=== PATIENT | male | born 1950 | race Caucasian/White ===

== ENCOUNTER 2018-06-20 11:48 | Emergency (ER) | payer MEDICARE ==
[2018-06-20 12:20] VITALS: BP 113/79; PULSE 52; RESP 18; TEMP 97.8
--- NOTE | 2018-06-20 12:48 | ED ---
Recheck HPI - General Chief Complaint: Recheck/Abnormal Lab/Rx Stated Complaint: needs blood work Time Seen by Provider: 06/20/18 12:35 Source: patient, RN notes reviewed, old records reviewed Mode of arrival: ambulatory Limitations: no limitations - History of Present Illness Initial Comments: Patient is a 67-year-old male presents today with chief complaint of recheck for his potassium level. He had lab work drawn yesterday showed a mildly elevated potassium level of 5.5. He is not on any diuretics. He denies any chest pain or heart palpitations. Patient reports that he is not on any diuretic medications to cause this. He's never had an issue with his potassium in the past. Patient at this time states that he does have history of thoracic aortic aneurysm, which has been stable. He has had a mitral valve replacement in 2001. This is been stable for many years and they're continuing to monitor it. Patient has had no other complaints. - Related Data Home Medications Medication Instructions Recorded Confirmed Albuterol Inhaler [Ventolin 1 - 2 puff INHALATION Q6HR PRN 12/06/14 08/13/16 Inhaler] Aspirin 81 mg PO HS 12/06/14 08/13/16 Atorvastatin [Lipitor] 20 mg PO HS 12/06/14 08/13/16 Enalapril [Vasotec] 10 mg PO HS 12/06/14 08/13/16 Multivitamin [Men's Multi-Vitamin] 1 each PO DAILY 12/06/14 08/13/16 Omeprazole [PriLOSEC] 20 mg PO DAILY 12/06/14 08/13/16 Tiotropium 18 Mcg/Puff [Spiriva] 1 cap INHALATION DAILY 12/06/14 08/13/16 Cetirizine HCl [Zyrtec] 10 mg PO DAILY 08/07/16 08/13/16 Marine D3 (Mcbrides 3, D3) 2 tab PO DAILY 08/07/16 08/13/16 Metamucil Capsules 5 cap PO DAILY 08/07/16 08/13/16 Metoprolol Tartrate [Lopressor] 25 mg PO DAILY 08/07/16 08/13/16 Sildenafil Citrate [Viagra] 50 mg PO ONCE PRN 08/07/16 08/13/16 Allergies Allergy/AdvReac Type Severity Reaction Status Date / Time naproxen [From Naprosyn] Allergy Anaphylaxis Verified 06/20/18 12:16 codeine AdvReac HEADACHE Verified 06/20/18 12:16 Review of Systems ROS Statement: Those systems with pertinent positive or pertinent negative responses have been documented in the HPI. ROS Other: All systems not noted in ROS Statement are negative. Past Medical History Past Medical History: Heart Failure, COPD, CVA/TIA, GERD/Reflux, GI Bleed, Hyperlipidemia, Hypertension, Prostate Disorder Additional Past Medical History / Comment(s): BPH. POSS SLEEP APNEA, NO TESTING. OCC RECTAL BLEEDING IN PAST. 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 HX CHF R/T MITRAL VALVE REPAIRED. aortic arch aneurysm History of Any Multi-Drug Resistant Organisms: None Reported Past Surgical History: Heart Catheterization, Hernia Repair, Orthopedic Surgery Additional Past Surgical History / Comment(s): REPAIR MITRAL VALVE 11/2001. LT HAND REPAIR. COLONOSCOPIES. Past Anesthesia/Blood Transfusion Reactions: No Reported Reaction Past Psychological History: No Psychological Hx Reported Smoking Status: Former smoker Past Alcohol Use History: Occasional Past Drug Use History: Marijuana - Past Family History Daughter(s) Family Medical History: Cancer Additional Family Medical History / Comment(s): HODGKIN'S LYMPHOMA. General Exam - General Exam Comments Initial Comments: Well-appearing 59-year-old male. Alert and oriented. Patient is an No acute distress. Limitations: no limitations General appearance: alert, in no apparent distress Head exam: Present: atraumatic, normocephalic, normal inspection Eye exam: Present: normal appearance, PERRL, EOMI. Absent: scleral icterus, conjunctival injection, periorbital swelling ENT exam: Present: normal exam, mucous membranes moist Neck exam: Present: normal inspection. Absent: tenderness, meningismus, lymphadenopathy Respiratory exam: Present: normal lung sounds bilaterally. Absent: respiratory distress, wheezes, rales, rhonchi, stridor Cardiovascular Exam: Present: regular rate, normal rhythm, normal heart sounds. Absent: systolic murmur, diastolic murmur, rubs, gallop, clicks Skin exam: Present: warm, dry, intact, normal color. Absent: rash Course Vital Signs 06/20/18 12:16 Temperature 97.8 F Pulse Rate 52 L Respiratory 18 Rate Blood Pressure 113/79 O2 Sat by Pulse 98 Oximetry Medical Decision Making - Medical Decision Making Patient 59-year-old male presents emergency department today with chief complaint of abnormal outpatient lab draw of an elevated potassium of 5.5. He denies any symptoms including chest pain shortness breath or arrhythmias. At this time patient's potassium was redrawn and is 4.3. BMP BMP is unremarkable otherwise. He did complain EKG today which was negative for any acute changes. This time Patient will be discharged with close follow-up with primary care physician. Discussed likely a lab air due to hemolysis. Family Patient understands treatment plan will comply. Return parameters were discussed. - Lab Data Result diagrams: 06/20/18 12:46 Lab Results 06/20/18 Range/Units 12:46 Sodium 139 (137-145) mmol/L Potassium 4.8 (3.5-5.1) mmol/L Chloride 107 (98-107) mmol/L Carbon Dioxide 26 (22-30) mmol/L Anion Gap 6 mmol/L BUN 26 H (9-20) mg/dL Creatinine 1.05 (0.66-1.25) mg/dL Est GFR (CKD-EPI)AfAm 84 (>60 ml/min/1.73 sqM) Est GFR (CKD-EPI)NonAf 73 (>60 ml/min/1.73 sqM) Glucose 105 H (74-99) mg/dL Calcium 9.3 (8.4-10.2) mg/dL 06/20/18 14:10 EKG performed at 1305 sinus bradycardia with sinus arrhythmia. Possible inferior infarct. Patient deteriorated 73 bpm. Was 206. QRS ration is 110 ms. QT QTc is 426/399 ms. Disposition Clinical Impression: Suspected condition not found Disposition: HOME SELF-CARE Condition: Good Instructions: Hyperkalemia (ED) Additional Instructions: Patient has follow-up with primary care physician. Return to emergency department if any alarming signs or symptoms occur. Is patient prescribed a controlled substance at d/c from ED?: No Referrals: Lashay Mccoy PAC [REFERRING] - 1-2 days Time of Disposition: 13:34
[2018-06-20 13:09] LABS: Calcium 9.3 mg/dL (8.4-10.2); Potassium 4.8 mmol/L (3.5-5.1)
== END 2018-06-20 14:07 | disposition home or self-care (01) ==
LOC: EC 11:48
DX: Z03.89 Encounter for observation for other suspected diseases and conditions ruled out (principal); I11.0 Hypertensive heart disease with heart failure; I50.9 Heart failure, unspecified; J44.9 Chronic obstructive pulmonary disease, unspecified; K21.9 Gastro-esophageal reflux disease without esophagitis; E78.5 Hyperlipidemia, unspecified; Z95.2 Presence of prosthetic heart valve; Z95.818 Presence of other cardiac implants and grafts; Z87.891 Personal history of nicotine dependence; Z86.73 Personal history of transient ischemic attack (TIA), and cerebral infarction without residual deficits; Z79.82 Long term (current) use of aspirin; Z79.899 Other long term (current) drug therapy; Z88.6 Allergy status to analgesic agent; Z88.5 Allergy status to narcotic agent
CPT/HCPCS: 36415; 80048; 93005; 99283

== ENCOUNTER → 2018-12-29 | Outpatient (CLI) | payer OTHER ==
[2018-12-29 10:37] LABS: Blood Urea Nitrogen 18 mg/dL (9-20)
--- NOTE | 2018-12-29 12:57 | CT ---
EXAMINATION TYPE: CT angio chest DATE OF EXAM: 12/29/2018 COMPARISON: 12/10/2017 HISTORY: 68-year-old male Thoracic Ascending Aortic Aneurysm TECHNIQUE: Contiguous axial scanning of the chest performed with IV Contrast, patient injected with 1 00 mL of Isovue 370. Coronal/sagittal MIP reconstructions performed. 3-D reconstructions generated on a dedicated independent workstation. CT DLP: 367.2 mGycm Automated exposure control for dose reduction was used. FINDINGS: Median sternotomy wires are present. Mitral annuloplasty ring. Heart normal size without pericardial effusion. The aortic root mildly aneurysmal at 4.0 cm, unchanged. The ascending aorta is mildly aneurysmal at 4.0 cm, unchanged. Very mild atherosclerotic changes at the vessel origins. Conventional arch vessel branching anatomy. Mild aneurysm upper descending thoracic aorta at 3.2 cm, unchanged. Mild aneurysm mid descending thoracic aorta at 3.1 cm, unchanged. Mild ectasia of the lower descending thoracic aorta at 2.6 cm. No thoracic lymphadenopathy by CT size criteria. Lungs show mild centrilobular emphysema. Mild hazy dependent atelectasis posterior lung bases. No con solidation or pleural effusion. Visualized upper abdomen shows moderate atherosclerotic calcifications at the left renal artery origi n and diffuse low-density thickening of the left greater than right adrenal glands without discrete n odularity. Bones: No osseous destructive process. IMPRESSION: 1. MILDLY ANEURYSMAL THORACIC AORTA NOT SIGNIFICANTLY CHANGED. CURRENTLY MEASURED AT 4.0 CM AT THE AO RTIC ROOT AND ASCENDING AORTA (VERSUS UP TO 4.1 CM, PREVIOUSLY) AND 3.2 CM UPPER DESCENDING THORACIC AORTA (VERSUS 3.5 CM, PREVIOUSLY). 2. COPD WITH MILD EMPHYSEMA.
== END | disposition home or self-care (01) ==
LOC: RADCTMAIN 09:55
PROVIDERS: ATTEND Thoracic Surgery (Cardiothoracic Vascular Surgery)
DX: I71.2 Thoracic aortic aneurysm, without rupture (principal); J43.9 Emphysema, unspecified
CPT/HCPCS: 82565; 84520; 71275; 36415; Q9967

== ENCOUNTER → 2019-12-27 | Outpatient (CLI) | payer OTHER ==
--- NOTE | 2019-12-27 09:59 | CT ---
EXAMINATION TYPE: CT chest wo con DATE OF EXAM: 12/27/2019 COMPARISON: 12/29/2018 CT HISTORY: Follow up thoracic aortic aneurysm CT DLP: 406.7 mGycm. Automated Exposure Control for Dose Reduction was Utilized. TECHNIQUE: CT scan of the thorax is performed without IV contrast. FINDINGS: LUNGS: Mild centrilobular emphysematous changes of the lungs are redemonstrated. The lungs are grossl y clear, there is no concerning parenchymal mass or nodule identified. There is no pleural effusion or pneumothorax seen. The tracheobronchial tree is patent. MEDIASTINUM: The aortic root just above the sinotubular junction is enlarged measuring 4.5 cm on teresa nal series 6 image 42. Ascending thoracic aorta at the level of main pulmonary artery on image 41 of coronal series 6 is also mildly enlarged measuring 4.2 cm. The upper descending thoracic aorta measur es 3.4 cm, mid thoracic descending thoracic aorta measures 3.3 cm, and distal thoracic aorta measures 3.0 cm. Previous measurements of 3.2, 3.1, and 2.6 cm of the descending thoracic aorta and of the ao rtic root of 4.0 cm and ascending thoracic aorta of 4.0 cm. The previously seen median sternotomy wires and mitral angioplasty are redemonstrated. Atherosclerosi s of the coronary arteries is moderate with possible left main coronary artery stent. Lack of IV contrast is noted to limit evaluation for mediastinal and especially hilar adenopathy. The re are no definitive greater than 1 cm hilar or mediastinal lymph nodes. Main pulmonary artery is wi thin normal limits measuring 2.8 cm. No cardiomegaly or pericardial effusion is seen. OTHER: Minimal retroareolar gynecomastia. Mild symmetric thickening of the adrenal glands that is uni form as the adrenal glands maintain and adreniform shape. Findings are most commonly on the basis of adrenal gland hyperplasia. Nonobstructing 3 mm left renal calculus. IMPRESSION: Progressive dilatation of the aortic root, ascending thoracic aorta and upper descending thoracic aorta with aortic root now measuring 4.5 cm (previously 4.0 cm), the ascending thoracic aort a now measuring 4.2 cm (previously 4.0 cm) and the upper descending thoracic aorta measuring 3.4 cm ( previously 3.2 cm).
== END | disposition home or self-care (01) ==
LOC: RADCTMAIN 08:03
PROVIDERS: ATTEND Thoracic Surgery (Cardiothoracic Vascular Surgery)
DX: I77.810 Thoracic aortic ectasia (principal)
CPT/HCPCS: 71250

== ENCOUNTER → 2021-01-10 | Outpatient (CLI) | payer OTHER ==
--- NOTE | 2021-01-10 14:16 | CT ---
EXAMINATION TYPE: CT chest wo con DATE OF EXAM: 01/10/2021 COMPARISON: 12/27/2019 HISTORY: 70-year-old male I7 1.2, Follow up for thoracic aortic aneurysm. TECHNIQUE: Contiguous axial scanning of the chest without IV contrast. Coronal and sagittal reconstru ctions performed. CT DLP: 418.9 mGycm Automated exposure control for dose reduction was used. FINDINGS: Median sternotomy wires. Mitral annuloplasty ring. Heart normal size without pericardial effusion. Aortic root aneurysmal at 4.3 cm, unchanged. Ascending aorta aneurysmal at 4.2 cm versus 4.3 cm, previously, not significantly changed. Mild atherosclerotic arch calcifications with conventional arch vessel branching anatomy. Aneurysmal distal arch at 3.9 cm versus 3.6 cm, previously, slightly increased. Lower descending thoracic aorta is ectatic at 2.7 cm, unchanged. The prior exam was remeasured for consistency. No thoracic lymphadenopathy by CT size criteria. A 5 mm right mid lung pulmonary nodule, axial image 36 was present previously. Minimal scattered emphysematous change in the upper lungs. No consolidation or pleural effusion. Visualized upper abdomen shows some low density diffuse thickening of the left adrenal gland which is unchanged. Some questionable gastric fold thickening. This may be due to nondistention or underlying chronic gastritis and can be correlated with patient's symptoms. Bones: No osseous destructive process. IMPRESSION: 1. STABLE ANEURYSMAL AORTIC ROOT AT 4.3 CM AND ASCENDING AORTA AT 4.2 CM. 2. THE DISTAL AORTIC ARCH APPEARS SLIGHTLY MORE ANEURYSMAL AT 3.9 CM VERSUS 3.6 CM, PREVIOUSLY. 3. MINIMAL EMPHYSEMATOUS CHANGE IN THE UPPER LUNGS.
== END | disposition home or self-care (01) ==
LOC: RADCTMAIN 11:55
PROVIDERS: ATTEND Thoracic Surgery (Cardiothoracic Vascular Surgery)
DX: I71.2 Thoracic aortic aneurysm, without rupture (principal); J43.9 Emphysema, unspecified
CPT/HCPCS: 71250